=== PATIENT | female | born 1990 | race Caucasian/White ===

== ENCOUNTER → 2022-06-15 | Day surgery (SDC) | payer MEDICAID, OTHER ==
[~2022-06-15] VITALS: Ht 162.6 cm; Wt 90.7 kg
[~2022-06-15] MED LIST: BUPIVACAINE HCL/PF 0.5% (5MG/ML) 10ML ONE; DEXAMETHASONE 4MG/ML 1ML VIAL ONE; FENTANYL CITRATE/PF 50MCG/ML 2ML VIAL ONE; HYDROCODONE/ACETAMINOPHEN 10/325MG TABLET PO SCH; HYDROMORPHONE HCL/PF 2MG/ML CPJ IV PRN; LACTATED RINGERS 1,000 ML IV SCH; LIDOCAINE HCL 1% 20ML VIAL (Pyxis) INJ ONE; LUTERA PO; MIDAZOLAM HCL 2 MG/2 ML VIAL ONE; NEOSTIGMINE METHYLSULFATE 1MG/ML 10 ML VIAL ONE; ONDANSETRON HCL 4MG/2ML INJ IV SCH; ONDANSETRON HCL 4MG/2ML INJ ONE; PRENATAL VITAMINS; PROPOFOL 200MG/20ML VIAL IV ONE; ROCURONIUM BROMIDE 10MG/ML VIAL 5ML IV ONE; SKIN ADHESIVE 0.7 GM EA TOP ONE
[2022-06-15 07:24] LABS: CLARITY URINE CLEAR (CLEAR); COLOR URINE YELLOW (YELLOW); KETONES URINE NEGATIVE (NEGATIVE); LEUKOCYTE ESTERASE URINE NEGATIVE (NEGATIVE); NITRITE URINE NEGATIVE (NEGATIVE); OCCULT BLOOD URINE 1+ (NEGATIVE); PROTEIN URINE NEGATIVE (NEGATIVE); SPECIFIC GRAVITY URINE 1.011 (1.005-1.030); UROBILINOGEN URINE 0.2 E.U./dL (0.2-1.0)
[2022-06-15 07:26] LABS: UCG SCREEN NEGATIVE
[2022-06-15 10:34] VITALS: BP 145/82
== END | disposition home or self-care (01) ==
LOC: OR 06:11 → EDSTATUS 09:00
PROVIDERS: ATTEND Surgery
DX: K80.10 Calculus of gallbladder with chronic cholecystitis without obstruction (principal); Z79.899 Other long term (current) drug therapy; Z98.890 Other specified postprocedural states; Z20.822 Contact with and (suspected) exposure to COVID-19
CPT/HCPCS: 47562; 81003; 81025; 87426; 88304; C9803; J1100; J1170; J2250; J2405; J2704; J2710; J3010; J3490; J7030